=== PATIENT | male | born 1965 ===

== ENCOUNTER 2018-05-20 18:02 | Emergency (ER) | payer SELFPAY ==
[2018-05-20 18:08] VITALS: TEMP 98.6
[2018-05-20] MEDS ORDERED: DiphenhydrAMINE 50 mg/ml Inj IM STA (18:23)
[2018-05-20] MEDS ORDERED: DiphenhydrAMINE 50 mg/ml Inj ONE (18:40)
--- NOTE | 2018-05-20 19:33 | C.PDOC ---
History Of Present Illness 52 y/o male presents to the ED for evaluation of allergic reaction. Patient passed by housing insulation, and soon thereafter developed erythematous rash to the face, neck, abdomen, and torso. He describes the rash as pruritic, red. Denies any difficulty swallowing, difficulty breathing, throat tightness, or voice changes. Time Seen by Provider: 05/20/18 18:20 Chief Complaint (Nursing): Allergic Reaction History Per: Patient History/Exam Limitations: no limitations Onset/Duration Of Symptoms: Hrs Current Symptoms Are (Timing): Still Present Past Medical History Reviewed: Historical Data, Nursing Documentation, Vital Signs Vital Signs: Last Vital Signs Temp 98.6 F 05/20/18 18:06 Pulse 85 05/20/18 20:35 Resp 16 05/20/18 20:35 BP 124/81 05/20/18 20:35 Pulse Ox 99 05/20/18 20:49 - Medical History PMH: No Chronic Diseases Surgical History: No Surg Hx Family History: States: No Known Family Hx - Social History Hx Tobacco Use: No Hx Alcohol Use: Yes Hx Substance Use: No - Immunization History Hx Tetanus Toxoid Vaccination: No Hx Influenza Vaccination: No Hx Pneumococcal Vaccination: No Review Of Systems Except As Marked, All Systems Reviewed And Found Negative. ENT: Negative for: Throat Pain, Throat Swelling, Other (difficulty swallowing) Respiratory: Negative for: Shortness of Breath Skin: Positive for: Rash Physical Exam - Physical Exam Appears: Non-toxic, No Acute Distress Skin: Warm, Rash (Urticarial rash to the face, neck, abdomen/trunk) Head: Atraumatic, Normacephalic Eye(s): bilateral: Normal Inspection, PERRL, EOMI Oral Mucosa: Moist Throat: Normal (airway is patent), No Erythema Neck: Normal ROM, Supple Chest: Symmetrical Cardiovascular: Rhythm Regular, No Murmur Respiratory: Normal Breath Sounds, No Accessory Muscle Use, No Rhonchi, No Wheezing Extremity: Bilateral: Atraumatic, Normal ROM Pulses: Left Radial: Normal, Right Radial: Normal Neurological/Psych: Oriented x3, Normal Speech ED Course And Treatment O2 Sat by Pulse Oximetry: 99 (RA) Pulse Ox Interpretation: Normal Progress Note: Patient treated with IM Benadryl, PO Pepcid, and prednisone. 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 Disposition - Disposition Referrals: [facility] [Outside] Disposition: HOME/ ROUTINE Disposition Time: 20:47 Condition: GOOD Additional Instructions: Follow up within 1-2 days. Return to ED if feel worse. 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 - Scribe Statement The provider has reviewed the documentation as recorded by the Scribe (Idalia Alba) All medical record entries made by the Scribe were at my direction and personally dictated by me. I have reviewed the chart and agree that the record accurately reflects my personal performance of the history, physical exam, medical decision making, and the department course for this patient. I have also personally directed, reviewed, and agree with the discharge instructions and disposition.
[2018-05-20 20:36] VITALS: BP 124/81; PULSE 85; RESP 16
[2018-05-20 20:49] VITALS: O2SAT 99
== END 2018-05-20 20:55 | disposition home or self-care (01) ==
LOC: C.ER 18:02
DX: L50.0 Allergic urticaria (principal)
CPT/HCPCS: 96372; 99283; J1200